=== PATIENT | female | born 1945 | race Caucasian/White ===

== ENCOUNTER 2017-04-05 13:48 | Emergency (ER) | payer MEDICARE, OTHER ==
[~2017-04-05 13:48] MED LIST: AFRIN30 ML; ASPIRIN EC81 MG PO; ASPIRIN ENTERI325 MG; ASPIRIN325 MG PO; BENICAR20 MG; BENICAR20 MG PO; CALCIUM; CALCIUM500 M1 PO; CARDIZEM; CIPRO250 MG PO; CIPRO500 MG PO; CLINDAMYCIN; COLACE100 MG PO; COZAAR50 MG PO; CRANBERRY PO; CYTOMEL25 MCG; CYTOMEL25 MCG PO; DELTASONE20 MG PO; DILAUDID2 MG PO; DILT-CD120 MG PO; DILTIAZEM 24HR120 MG PO; DILTIAZEM ER120 MG; FLONASE16 GM NS; FUROSEMIDE20 MG PO; HYDROMORPHONE HC2 MG PO; LAMICTAL100 M2 PO; LAMICTAL100 MG; LASIX20 MG; LASIX20 MG PO; LEXAPRO10 MG PO; LOVENOX40 MG/0.4 SQ; MILK OF MA400 MG/5 M PO; MOBIC7.5 MG PO; MULTIVITAMIN1 TAB PO; NORCO 5/3251 TAB PO; NORVASC5 M2 PO; OMEPRAZOLE20 M2 PO; PROAIR HFA8.5 GM INH; PROMETH-CODEIN 65 ML PO; PROMETHAZINE25 MG PO; PROTONIX40 MG; PROTONIX40 MG PO; PYRIDIUM200 MG PO; ROBITUSSIN COU118 M7 PO; SENNA8.6 M1 PO; SIMVASTATIN40 MG PO; SYNTHROID; SYNTHROID100 MC1 PO; SYNTHROID25 MCG; TRAMADOL HCL50 MG PO; TYLENOL325 MG PO; ULTRAM50 MG PO; VIBRAMYCIN100 M1 PO; VITAMIN B-12250 MC2 PO; VITAMIN D35000 UNI2 PO; ZOCOR40 M1 PO; ZOFRAN4 MG PO
== END 2017-04-05 16:26 ==
LOC: EDMED 13:48
DX: S80.01XA Contusion of right knee, initial encounter (principal); I10 Essential (primary) hypertension; E03.9 Hypothyroidism, unspecified; G40.909 Epilepsy, unspecified, not intractable, without status epilepticus; Z87.891 Personal history of nicotine dependence; Z87.442 Personal history of urinary calculi; Z79.899 Other long term (current) drug therapy; W10.9XXA Fall (on) (from) unspecified stairs and steps, initial encounter; Y92.511 Restaurant or cafe as the place of occurrence of the external cause